=== PATIENT | male | born 1975 | race Caucasian/White ===

== ENCOUNTER 2017-09-17 16:10 | Inpatient (IN) | payer BC, OTHER ==
[~2017-09-17] VITALS: Ht 182.9 cm; Wt 138.1 kg
--- NOTE | ~2017-09-17 | H ---
[facility] [place] [address] HISTORY AND PHYSICAL Name: MAYA DURON Room #: 434-P [facility] IN M.R.#: [id number] Admission: 09/17/17 Attend Phys: Nathaly Leblanc MD, Discharge: Date of : 75 Report #: [id number] THIS REPORT FOR: //name// CC: Amber Leblanc DATE OF SERVICE: 09/17/2017 CHIEF COMPLAINT: Abdominal pain. HISTORY OF PRESENT ILLNESS: The patient is a 42-year-old obese male who presented to the hospital complaining of severe left lower quadrant abdominal pain with subjective fevers and body aches of 24 hours duration. The patient states he has had multiple prior episodes of similar symptoms in the past that resolved spontaneously and has not taken any prior medications to alleviate his symptoms. With this current episode, he has been unable to attain comfort and as his pain continued to worsen, he presented for evaluation. Workup in the form of laboratories and a CT scan of the abdomen and pelvis were obtained. The patient's labs showed a mild leukocytosis with a white blood cell count of 14.[address] scan showed a sigmoid colon thickening with pericolonic inflammatory changes and punctate air bubbles. There were extraluminal seen consistent with acute sigmoid diverticulitis with microperforation, but no gross abscess or free air was seen. The patient is therefore being admitted for proper management. PAST MEDICAL HISTORY: Morbid obesity. MEDICATIONS: None. ALLERGIES: LATEX, WHICH CAUSED A RASH AND DOXYCYCLINE, WHICH CAUSED ABDOMINAL PAIN. FAMILY HISTORY: Reviewed and noncontributory. SOCIAL HISTORY: The patient does not utilize tobacco or illicit drug use. He does drink alcohol occasionally, but never to excess and only in social situations. REVIEW OF SYSTEMS: GENERAL: The patient denies nocturnal fevers or chills, but does state subjective fever at home during the day. HEENT: No change in vision, change in hearing. NECK: No swelling or difficulty swallowing. HEART: No chest pain or palpitations. LUNGS: No cough or shortness of breath. ABDOMEN: Abdominal pain with nausea. [facility] [address] [place] [address] HISTORY AND PHYSICAL Name: MAYA DURON Room #: 434-P [facility] IN ..#: [id number] Admission: 09/17/17 Attend Phys: Nathaly Leblanc MD, Discharge: Date of : 75 Report #: [id number] GENITOURINARY: No dysuria or hematuria. ENDOCRINE: No polyuria or polydipsia. HEMATOLOGIC: No history of bleeding or easy bruising. EXTREMITIES: No history weakness or limited range of motion. NEUROLOGIC: No history of syncope or near syncopal episodes. SKIN AND INTEGUMENT: No history of abnormal lesions or moles. PSYCHIATRIC: No history of anxiety or depression. PHYSICAL EXAMINATION: VITAL SIGNS: Temperature 97.6, pulse 68, respirations 20, blood pressure 127/81. He stands 6 feet 0 inches tall and weighs 304.5 pounds. GENERAL: Alert and oriented, in no acute distress. HEENT: Normocephalic, atraumatic. Pupils equal, round, reactive to light. NECK: Supple, without lymphadenopathy. Trachea midline. HEART: Regular rate and rhythm. LUNGS: Clear to auscultation bilaterally. ABDOMEN: Soft, nondistended. He is tender to palpation in the right lower quadrant with mild guarding, but no rebound. GENITOURINARY: Normal external male genitalia. EXTREMITIES: No clubbing, cyanosis or edema. NEUROLOGIC: Cranial nerves 2-12 are grossly intact. PSYCHIATRIC: Normal mood and affect. SKIN AND INTEGUMENT: No abnormal lesions or moles. LABORATORY AND X-RAY DATA: CBC shows white blood cell count of 14.5 thousand, hemoglobin 16.2, platelets 258,000. Creatinine is 1.3. Lactic acid is 2.0 prior to fluids. Urinalysis is negative. CT scan of the abdomen and pelvis as per HPI shows sigmoid diverticulitis with pericolonic inflammatory change and punctate focal air bubbles consistent with microperforation, but no abscess or pericolonic fluid collection and no free air were seen. ASSESSMENT AND PLAN: A 42-year-old obese male with what appears to be acute perforated sigmoid diverticulitis with microperforation, although there is some free fluid in the pelvis. There is no gross free air seen and no free fluid around the site of perforation. The patient does have mild pain with palpation in the low-level leukocytosis, but is not peritonitic at this time. In addition, he is not tachycardic or febrile. As such, the patient will be managed conservatively with n.p.o. status, IV fluid rehydration, IV antibiotics and we will perform serial abdominal exams and repeat labs. If the patient should develop an abscess, he may necessitate Interventional Radiology drainage or if he decompensates, he may necessitate emergent exploration with a Barbara's procedure. All the above was discussed with the patient in detail [address] [address] HISTORY AND PHYSICAL Name: MAYA DURON Room #: 434-P ADM IN M.R.#: [id number] Admission: 09/17/17 Attend Phys: Nathaly Leblanc MD, Discharge: Date of : 75 Report #: [id number] and he agrees to proceed as outlined. All additional documentation and orders will be left in the patient's permanent medical record as appropriate. <ELECTRONICALLY SIGNED> By: Nathaly Leblanc MD, KATH 09/19/17 0855 [id number] Nathaly Leblanc MD, FACS /nt
[~2017-09-17 16:10] MED LIST: ERYTHROMYCIN E3.5 G3 OPHTHALMIC; NOHOMEMEDICATIONS
[2017-09-17 16:12] VITALS: BP 120/68
[2017-09-17 16:49] LABS: ABSOLUTE NEUTROPHILS 9.8 thou/uL (1.4-8.2); BASOPHILS 0.3 % (0.0-2.0); EOSINOPHILS 0.2 % (0.0-3.0); HEMATOCRIT 46.8 % (42.0-52.0); HEMOGLOBIN 16.2 gm/dL (14.0-18.0); LYMPHOCYTES 22.1 % (24.0-44.0); MCHC 34.6 g/dL (28.0-37.0); MCV 89.8 fL (80.0-100.0); MONOCYTES 9.8 % (1.0-8.0); PLATELET COUNT 258 thou/uL (150-400); POLYS 67.6 % (36.0-66.0); RBC 5.21 mil/uL (4.50-6.00); RDW 13.2 % (10.5-14.5); WBC 14.5 thou/uL (4.0-11.0)
[2017-09-17 17:01] LABS: CALCIUM 9.4 mg/dL (8.5-10.1); CREATININE 1.3 mg/dL (0.7-1.3)
[2017-09-17 17:06] LABS: ALBUMIN 3.9 g/dL (3.4-5.0); DIRECT BILIRUBIN 0.1 mg/dL (<0.1-0.3); TOTAL BILIRUBIN 1.2 mg/dL (<0.1-1.0); TOTAL PROTEIN 8.3 g/dL (6.4-8.2)
[2017-09-17 20:10] VITALS: BP 127/81
[2017-09-17 20:29] VITALS: BP 132/91
[2017-09-17 21:15] VITALS: BP 133/61
[2017-09-18 00:30] LABS: URINE BILIRUBIN NEGATIVE (Negative); URINE BLOOD NEGATIVE (Negative); URINE CLARITY CLEAR; URINE COLOR YELLOW; URINE GLUCOSE-RANDOM* NEGATIVE (Negative); URINE KETONES 1+ (Negative); URINE LEUKOCYTES NEGATIVE (Negative); URINE NITRITE NEGATIVE (Negative); URINE PROTEIN (DIPSTICK) TRACE (Negative); URINE SPECIFIC GRAVITY 1.015 (1.005-1.035); URINE UROBILINOGEN 0.2 E.U./dl (0.2-1.0)
[2017-09-18 03:40] VITALS: BP 114/76
[2017-09-18 08:17] LABS: HEMATOCRIT 45.8 % (42.0-52.0); HEMOGLOBIN 15.6 gm/dL (14.0-18.0); MCH 30.8 pg (26.0-34.0); MCHC 34.1 g/dL (28.0-37.0); MCV 90.1 fL (80.0-100.0); RBC 5.08 mil/uL (4.50-6.00); RDW 13.2 % (10.5-14.5); WBC 18.9 thou/uL (4.0-11.0)
[2017-09-18 08:24] LABS: CALCIUM 8.6 mg/dL (8.5-10.1); CREATININE 1.4 mg/dL (0.7-1.3); POTASSIUM 3.9 mmol/L (3.5-5.1)
[2017-09-18 15:45] VITALS: BP 141/98
[2017-09-18 21:41] VITALS: BP 148/100
[2017-09-19 04:46] VITALS: BP 138/90
[2017-09-19 04:47] LABS: APTT 32.9 Seconds (24.5-32.8); INR 1.1; PROTIME 11.6 Seconds (9.3-11.4)
[2017-09-19 04:51] LABS: HEMATOCRIT 42.3 % (42.0-52.0); HEMOGLOBIN 14.3 gm/dL (14.0-18.0); MCHC 33.9 g/dL (28.0-37.0); MCV 91.4 fL (80.0-100.0); RBC 4.63 mil/uL (4.50-6.00); RDW 13.3 % (10.5-14.5); WBC 14.1 thou/uL (4.0-11.0)
[2017-09-19 04:56] LABS: CALCIUM 8.8 mg/dL (8.5-10.1)
[2017-09-19 04:59] LABS: POTASSIUM 5.2 mmol/L (3.5-5.1)
[2017-09-19 08:00] VITALS: BP 132/89
[2017-09-19 16:26] VITALS: BP 130/82
[2017-09-19 20:18] VITALS: BP 135/89
[2017-09-20 03:50] LABS: HEMATOCRIT 39.4 % (42.0-52.0); HEMOGLOBIN 13.4 gm/dL (14.0-18.0); MCH 30.9 pg (26.0-34.0); MCHC 34.1 g/dL (28.0-37.0); MCV 90.7 fL (80.0-100.0); RBC 4.35 mil/uL (4.50-6.00); RDW 13.5 % (10.5-14.5); WBC 11.8 thou/uL (4.0-11.0)
[2017-09-20 04:04] LABS: CREATININE 0.9 mg/dL (0.7-1.3); POTASSIUM 3.5 mmol/L (3.5-5.1)
[2017-09-20 05:04] VITALS: BP 137/91
[2017-09-20 10:06] VITALS: BP 152/92
[2017-09-20 15:09] VITALS: BP 140/91
[2017-09-20 19:19] VITALS: BP 148/93
[2017-09-21 05:03] VITALS: BP 133/80
[2017-09-21 05:22] LABS: MCH 31.2 pg (26.0-34.0); MCHC 34.2 g/dL (28.0-37.0); MCV 91.2 fL (80.0-100.0); RBC 4.5 mil/uL (4.50-6.00); RDW 13.4 % (10.5-14.5); WBC 10.5 thou/uL (4.0-11.0)
[2017-09-21 05:32] LABS: CALCIUM 8.1 mg/dL (8.5-10.1); POTASSIUM 3.1 mmol/L (3.5-5.1)
[2017-09-21 07:34] VITALS: BP 132/85
[2017-09-21 12:14] LABS: CALCIUM 8.3 mg/dL (8.5-10.1); MAGNESIUM 2.1 mg/dL (1.8-2.4); POTASSIUM 3.3 mmol/L (3.5-5.1)
[2017-09-21 15:28] VITALS: BP 138/94
[2017-09-21 19:49] VITALS: BP 133/70
[2017-09-22 03:53] LABS: HEMOGLOBIN 13.7 gm/dL (14.0-18.0); MCH 30.9 pg (26.0-34.0); MCHC 34.2 g/dL (28.0-37.0); MCV 90.3 fL (80.0-100.0); RBC 4.42 mil/uL (4.50-6.00); RDW 13.5 % (10.5-14.5); WBC 8.5 thou/uL (4.0-11.0)
[2017-09-22 04:12] LABS: CALCIUM 8.6 mg/dL (8.5-10.1); CREATININE 0.9 mg/dL (0.7-1.3); POTASSIUM 3.7 mmol/L (3.5-5.1)
[2017-09-22 04:26] VITALS: BP 139/89
[2017-09-22 09:46] VITALS: BP 141/90
[2017-09-22] MEDS ORDERED: AUGMENTIN 875-1 EACH PO (11:12)
[2017-09-22] MEDS ORDERED: FLAGYL500 MG PO (11:12)
[2017-09-22] MEDS ORDERED: PHENERGAN 25 MG25 M1 PO (11:12)
[2017-09-22] MEDS ORDERED: HYDROCODONE-AP1 EAC6 PO (11:12)
[2017-09-22 13:57] VITALS: BP 141/90
[2018-01-16] MEDS ORDERED: FLONASE 0.05%50 MCG NASAL (13:53)
== END 2017-09-22 15:16 | disposition home or self-care (01) | DRG 392 ==
LOC: ER 16:10 → EROBS 18:45 → 4S 18:45
PROVIDERS: Emergency Medicine; Surgery
DX: K57.20 Diverticulitis of large intestine with perforation and abscess without bleeding (principal); Z68.41 Body mass index [BMI] 40.0-44.9, adult; E66.01 Morbid (severe) obesity due to excess calories; Z88.1 Allergy status to other antibiotic agents; Z91.040 Latex allergy status
CPT/HCPCS: 10102

== ENCOUNTER 2018-01-22 05:29 | Inpatient (IN) | payer BC, OTHER ==
[~2018-01-22] VITALS: Ht 182.9 cm; Wt 131.7 kg
--- NOTE | ~2018-01-22 | O ---
[facility] [place] [address] OPERATIVE REPORT Name: MAYA DURON Room #: 408-P [facility] IN M.R.#: [id number] Admission: 01/22/18 Attend Phys: Nathaly Leblanc MD, Discharge: Date of : 75 Report #: [id number] THIS REPORT FOR: //name// CC: Amber Leblanc DATE OF SERVICE: 01/22/2018 PREOPERATIVE DIAGNOSES: 1. Chronic recurrent sigmoid diverticulitis. 2. Morbid obesity with a body mass index of 40.5. POSTOPERATIVE DIAGNOSES: 1. Chronic recurrent sigmoid diverticulitis. 2. Morbid obesity with a body mass index of 40.5. 3. 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 PROCEDURES PERFORMED: 1. Laparoscopic sigmoid colectomy with stapled coloproctostomy. 2. Laparoscopic mobilization of splenic flexure. 3. Laparoscopic segmental small-bowel resections times 2 with [id number] functional end-to-end reanastomosis. 4. This is a modifier 22 procedure for difficulty of procedure with intraoperative findings of a fistula between the sigmoid colon and the mid small-bowel that required 2 segmental small-bowel resections as well as difficulty encountered by the patient's morbid obesity with a BMI of greater than 40 with marked amounts of intraabdominal fat obscuring our visualization and making dissection even more difficult. Total operative time was greater than 2-1/2 hours as opposed to the usual 60-75 minute sigmoid colectomy. SURGEON: Nathaly Leblanc MD SNUFF GRINDER: Allen Millan MD ANESTHESIA: General endotracheal anesthesia. ESTIMATED BLOOD LOSS: Minimal (less than 20 mL). COMPLICATIONS: None appreciated. SPECIMENS: 1. Sigmoid colon to pathology with suture marking proximal. 2. Two separate segments of small-bowel to pathology, the first with a suture marking the fistula site and the second, which was a stapled anastomosis as well as one additional fistula site distal to the initial resection. [address] [address] OPERATIVE REPORT Name: OLIVERIOMAYA Guanakito Room #: 408-P [facility] IN ..#: [id number] Admission: 01/22/18 Attend Phys: Nathaly Leblanc MD, Discharge: Date of : 75 Report #: [id number] INDICATIONS: The patient is a 42-year-old morbidly obese male who has been admitted for severe sigmoid diverticulitis with a microperforation that did not require emergent exploration. The patient was treated with IV antibiotics and improved markedly over his hospital course. The patient was seen as an outpatient where he underwent a colonoscopy showing diverticular disease with no overt pathology otherwise and unfortunately did have recurrence of diverticulitis once again that required oral antibiotic therapy as an outpatient. The patient has now been free of diverticulitis for approximately 6 weeks and as such, indication was for sigmoid colectomy today with intraoperative findings of a fistula between the mid small-bowel and the sigmoid colon that required resection for definitive management. PROCEDURE: After explaining the risks, benefits, and alternatives of the procedure with the patient in detail in the preoperative holding area and obtaining written consent, the patient was brought to the operating room and placed supine on the operating room table. After conducting a thorough timeout procedure, verifying correct patient and procedure, the patient was given general endotracheal anesthesia. Once adequate anesthesia was obtained, his SCDs were hooked up to pneumatic compression device. He was given a preoperative dose of antibiotics in line with the SCIP protocol. The patient's abdomen was prepped and draped in a standard surgical sterile fashion after positioning him in the low lithotomy position with his legs in the Yellofin stirrups. 5 mL of 0.5% Marcaine with epinephrine were used to anesthetize the skin 3-cm cephalad to the umbilicus and 3-cm to the patient's right. A small skin devyn was made at this location using a #15 bladed scalpel. A 5-mm Visiport was placed over 0-degree 5-mm laparoscope and was introduced through this incision site. Once intra-abdominal placement was verified visually, the obturator for the trocar and laparoscope were both removed and the abdomen was insufflated to 15 mmHg using carbon dioxide gas. The laparoscope was changed to a 5-mm 30-degree laparoscope, which was reintroduced through this trocar. The entire abdomen was evaluated to ensure no injury upon entry. We immediately identified a thick, firm sigmoid colon plastered to the posterior aspect of the anterior abdominal wall in the left lower quadrant. I now placed an additional 5-mm port 5-cm to the left of the initially placed port and an additional 12-mm port in the right lower quadrant. Both additional trocars were placed under direct vision after anesthetizing the skin at each location with 5 mL of 0.5% Marcaine with epinephrine, and I had created appropriately sized skin nicks using a #15 bladed scalpel. The patient was now placed in Trendelenburg position with the left side elevated. The articulating EnSeal device was now used to take down all adhesions of the colon from the abdominal wall, which was quite difficult secondary to the firm desmoplastic fibrotic reaction from his diverticular disease. Ultimately, we were able to free this from the left pelvic side wall and abdominal wall being cognizant of the left ureter throughout. The colon was now elevated cephalad and we dissected through the mesentery at the colorectal juncture just anterior to the sacral promontory. [facility] [address] [place] [address] OPERATIVE REPORT Name: MAYA DURON Room #: 408-P ADM IN M.R.#: [id number] Admission: 01/22/18 Attend Phys: Nathaly Leblanc MD, Discharge: Date of : 75 Report #: [id number] This dissection was done using the articulating EnSeal device. I then selected the 60-mm [place] with a green load and placed this into the abdomen through the 12-mm port. One blade was passed through the window in the mesentery and it was clamped and fired completely transecting the colon at the rectosigmoid juncture. The proximal staple line was now grasped and we were able to mobilize the colon along its lateral aspect using the articulating EnSeal device with some difficulty secondary to the patient's marked intra-abdominal fat as well as the firm adhesions encountered from his diverticular disease and multiple flare ups. While dissecting up the white line of Toldt, we encountered a loop of mid small-bowel plastered to the diseased colon and upon further inspection, there was an overt fistula. I was able to free this from the colon by blunt dissection coupled with the articulating EnSeal device and a single suture using 3-0 PDS was placed at this location for future identification and to close the small enterotomy from the fistula site. This was tied intracorporeally and the needle was removed and passed off the field. We now completed mobilization of the sigmoid colon and upon evaluation, we would necessitate mobilization of the entire splenic flexure. We were able to dissect all the way up around the splenic flexure to allow for significant laxity to the colon. I now used the articulating EnSeal device to take down the mesentery of the diseased colon as far cephalad as necessary to just proximal to the diseased segment to where the colon itself was soft, pliable and healthy. We selected the extraction site in the left mid abdomen, which was anesthetized with 10 mL of 0.5% Marcaine with epinephrine. A #10 bladed scalpel was used to create a 4-cm transverse skin incision at this location and electrocautery was used to carry this down through skin and subcutaneous tissues to ensure hemostasis. I was able to open the anterior rectus fascia transversely and transected the abdominal musculature and into the peritoneum. This was dilated with Brower retractors and an Gabriel wound protector was placed. We were then able to deliver the diseased colon through this and this was elevated until healthy colon was seen extracorporeally. We cleaned off the colon at this juncture and transected it using the auto pursestring suture device. The diseased segment of colon was transected with curved Mejia scissors and passed off the field with a suture marking proximal. Allis clamps were placed on the open end of colon and it was sized appropriately showing the appropriate EEA stapler to be a size 29. The 29 EEA anvil was then placed in the open end of colon where the pursestring suture was tied down around the post. This was then entered back into the abdomen in standard fashion and the cap for the Gabriel retractor was placed. I was then able to deliver the small-bowel through the Gabriel retractor under direct vision where the cap was removed and we resected the fistulized small bowel. This was done using the JOAN-75 mm stapler on either side of the diseased segment and using the articulating EnSeal device to transect the mesentery for hemostasis. The bowel edges were aligned in a reud-uq-gasg functional end-to-end fashion where the antimesenteric corners were removed with curved Mejia scissors. An additional firing of a JOAN blue load 75-mm stapler was used to create the anastomosis in standard fashion and the common enterotomy was closed using a [place] blue load 60 stapler. Finger palpation of the anastomosis showed it to be [facility] [address] [place] [address] OPERATIVE REPORT Name: MAYA DURON Room #: 408-P ADM IN M.R.#: [id number] Admission: 01/22/18 Attend Phys: Nathaly Leblanc MD, Discharge: Date of : 75 Report #: [id number] widely patent and it was entered back into the abdomen with the cap of the Gabriel being replaced. The abdomen was reinsufflated. Evaluation of the anastomosis showed it to have excellent orientation, but unfortunately tracking the small-bowel and running it, we saw one additional defect that appeared to be another fistulous tract, approximately 7-cm distal to our anastomosis. This did not appear amenable to its own segmental resection and as such, the Hydet[place] 60-mm stapler with a blue load was entered into the abdomen and was used to transect both limbs of bowel incorporating the just created anastomosis in order to resect this other segment of fistulous communication with the colon. The EnSeal device was used to transect the mesentery for hemostasis and this was removed via the Gabriel retractor. The transected ends of small-bowel were then elevated and the antimesenteric corners were cut off with curved Mejia scissors. A single suture of 3-0 PDS was placed in the antimesenteric aspect to hold the bowel loops in approximation and another firing of the JOAN blue load 75-mm stapler was carried out to create the anastomosis by placing each limb of the stapler down the enterotomies clamping and firing. The common enterotomy was elevated between Allis clamps and was transected using a [place] blue load 60 stapler. Palpation of the anastomosis showed it to be widely patent. Made complete hemostasis. The mesenteric defect was exceedingly small. A single running suture of 3-0 PDS was placed in the mesentery to close this defect and a suture was placed at the crotch of the staple line to act as an anti-tension stitch. This was placed back in the abdomen where the anastomosis was visualized laparoscopically to be in excellent orientation with no twisting. There was no bleeding. We now turned our attention to creating the colorectal anastomosis. Evaluation of the anvil in the descending colon showed that we had significant laxity with approximately 5-cm overlap with the rectal stump. The rectal stump was dilated with the EEA sizers showing 29 EEA stapler to be appropriate once again. The 29 EEA stapler was delivered into the rectal stump all the way to the staple line where the spike was delivered through the center most portion of the staple line. The spike and the anvil were mated and the stapler was ratcheted down and fired completing the colorectal anastomosis. Care was taken to ensure no twisting to the descending colon, photodocumentation was taken and provided to the patient and the permanent medical record. We now filled the pelvis with normal saline and clamped the bowel proximal to the anastomosis and performed a leak test with the rigid proctoscope. This was done on 3 occasions showing no bubbling, thereby signifying a negative leak test. The normal saline was suctioned out of the pelvis and ran clear throughout with no active bleeding seen whatsoever. The left ureter through the course of the dissection was identified, preserved, and uninjured throughout. The 12-mm trocar was now removed and the fascia was closed using 0 PDS suture on the Evangelista-Thang suture passer device under direct vision. This was tied down. I then removed the Gabriel retractor and proceeded to repair the fascial defect using a running 0 PDS in standard fashion using 2 sutures to run from the apices and meeting in the middle where they were tied down. This was visualized intraabdominally with the laparoscope after reducing the insufflation pressure to 5 mmHg to ensure I did not catch a loop of bowel or omentum in the suture [facility] [address] [place] [address] OPERATIVE REPORT Name: OLIVERIOMAYA Room #: 408-P [facility] IN M.R.#: [id number] Admission: 01/22/18 Attend Phys: Nathaly Leblanc MD, Discharge: Date of : 75 Report #: [id number] repair. The abdomen was now fully desufflated, all remaining trocars removed under direct vision. A 4-0 Monocryl was used in a standard subcuticular fashion for all skin incisions and Dermabond glue was applied to all skin wounds. At the end of the procedure, all instrument, needle and sponge counts were correct. The patient tolerated the procedure without incident, was awakened in the operating room and transitioned to the recovery room in stable condition with no apparent complications. <ELECTRONICALLY SIGNED> By: Nathaly Leblanc MD, FACS 01/22/18 1824 [id number] Nathaly Leblanc MD, FACS /nt
[~2018-01-22 05:29] MED LIST changes: +AUGMENTIN 875-1 EACH PO; +FLAGYL500 MG PO; +FLONASE 0.05%50 MCG NASAL; +HYDROCODONE-AP1 EAC6 PO; +PHENERGAN 25 MG25 M1 PO
[2018-01-22 09:20] VITALS: BP 146/80
[2018-01-22 16:01] VITALS: BP 117/77
[2018-01-22 16:30] VITALS: BP 116/72
[2018-01-22 17:12] VITALS: BP 118/80
[2018-01-22 17:30] VITALS: BP 116/79; BP 117/80
[2018-01-22 20:00] VITALS: BP 134/92
[2018-01-23 04:00] VITALS: BP 100/54
[2018-01-23 06:02] LABS: HEMATOCRIT 41.5 % (42.0-52.0); HEMOGLOBIN 14.2 gm/dL (14.0-18.0); MCH 30.6 pg (26.0-34.0); MCHC 34.1 g/dL (28.0-37.0); MCV 89.7 fL (80.0-100.0); RBC 4.63 mil/uL (4.50-6.00); WBC 11.1 thou/uL (4.0-11.0)
[2018-01-23 06:16] LABS: CALCIUM 8.4 mg/dL (8.5-10.1); CREATININE 1.2 mg/dL (0.7-1.3); POTASSIUM 4.6 mmol/L (3.5-5.1)
[2018-01-23 08:20] VITALS: BP 128/84
[2018-01-23 17:22] VITALS: BP 141/88
[2018-01-23 19:21] VITALS: BP 126/82
[2018-01-24 03:45] VITALS: BP 124/85
[2018-01-24 06:01] LABS: ABSOLUTE NEUTROPHILS 5.2 thou/uL (1.4-8.2); BASOPHILS 0.2 % (0.0-2.0); EOSINOPHILS 0.2 % (0.0-3.0); HEMOGLOBIN 13.6 gm/dL (14.0-18.0); LYMPHOCYTES 22.1 % (24.0-44.0); MCH 31.3 pg (26.0-34.0); MCHC 34.7 g/dL (28.0-37.0); MONOCYTES 9.1 % (1.0-8.0); PLATELET COUNT 195 thou/uL (150-400); POLYS 68.4 % (36.0-66.0); RBC 4.34 mil/uL (4.50-6.00); RDW 13.9 % (10.5-14.5); WBC 7.6 thou/uL (4.0-11.0)
[2018-01-24 06:13] LABS: CALCIUM 8.1 mg/dL (8.5-10.1); POTASSIUM 3.7 mmol/L (3.5-5.1)
[2018-01-24 07:08] VITALS: BP 127/75
[2018-01-24 15:43] VITALS: BP 142/85
[2018-01-24 20:33] VITALS: BP 136/90
[2018-01-25 05:20] VITALS: BP 142/88
[2018-01-25 05:56] LABS: ABSOLUTE NEUTROPHILS 4.9 thou/uL (1.4-8.2); BASOPHILS 0.2 % (0.0-2.0); EOSINOPHILS 0.6 % (0.0-3.0); HEMATOCRIT 39.7 % (42.0-52.0); HEMOGLOBIN 13.6 gm/dL (14.0-18.0); LYMPHOCYTES 21.7 % (24.0-44.0); MCH 30.8 pg (26.0-34.0); MCHC 34.3 g/dL (28.0-37.0); MCV 89.8 fL (80.0-100.0); MONOCYTES 10.9 % (1.0-8.0); PLATELET COUNT 210 thou/uL (150-400); POLYS 66.6 % (36.0-66.0); RBC 4.42 mil/uL (4.50-6.00); RDW 13.7 % (10.5-14.5); WBC 7.4 thou/uL (4.0-11.0)
[2018-01-25 06:20] LABS: CALCIUM 8.6 mg/dL (8.5-10.1)
[2018-01-25 07:35] VITALS: BP 119/84
[2018-01-25] MEDS ORDERED: FLOMAX0.4 MG PO (09:53)
[2018-01-25] MEDS ORDERED: ZOFRAN 4 MG ORAL4 MG DISSOLVE (09:53)
[2018-01-25] MEDS ORDERED: OXYCODONE HCL10 MG PO (09:53)
[2018-01-25 16:46] VITALS: BP 130/84
[2018-01-25 17:33] VITALS: BP 130/84
== END 2018-01-25 18:25 | disposition home or self-care (01) | DRG 330 ==
LOC: TBA 05:29 → PRE 09:19 → 4N 15:45 → PRE 15:48 → 4N 01-25 18:25
PROVIDERS: Surgery
PROC: 0DBN4ZZ Excision of Sigmoid Colon, Percutaneous Endoscopic Approach (ICD-10-PCS; principal; 2018-01-22)
PROC: 0DB84ZZ Excision of Small Intestine, Percutaneous Endoscopic Approach (ICD-10-PCS; principal; 2018-01-22)
PROC: 0D1N4ZP Bypass Sigmoid Colon to Rectum, Percutaneous Endoscopic Approach (ICD-10-PCS; principal; 2018-01-22)
DX: K57.32 Diverticulitis of large intestine without perforation or abscess without bleeding (principal); K63.2 Fistula of intestine; E66.01 Morbid (severe) obesity due to excess calories; G47.33 Obstructive sleep apnea (adult) (pediatric); Z68.39 Body mass index [BMI] 39.0-39.9, adult; Z88.8 Allergy status to other drugs, medicaments and biological substances; Z91.040 Latex allergy status
CPT/HCPCS: 10790; 50010; 50101; 50249; 50290; 50386; 50525; 50555; 50558; 50740; 50804; 51398; 51420; 51435; 51489; 51708; 51712; 52265; 53307; 54022; 54118; 55245; 56462; 56525; 56526; 56527; 56753; 57092; 62110; 62900; 70005

== ENCOUNTER → 2020-03-26 | Outpatient (CLI) | payer BC, OTHER ==
[~2020-03-26] MED LIST changes: +FLOMAX0.4 MG PO; +OXYCODONE HCL10 MG PO; +ZOFRAN 4 MG ORAL4 MG DISSOLVE
== END ==
LOC: LAB 08:00
PROVIDERS: ATTEND Anesthesiology
DX: Z01.812 Encounter for preprocedural laboratory examination (principal); Z11.59 Encounter for screening for other viral diseases